=== PATIENT | male | born 1995 ===

== ENCOUNTER 2019-04-04 22:32 | Emergency (ER) | payer SELFPAY ==
--- NOTE | 2019-04-05 05:36 | XRay Report ---
PROCEDURE: XR FOOT 3+V RT TECHNIQUE: Right foot radiographs, AP, lateral, and oblique views. HISTORY: pain, s/p surgery 3 wks ago for crush injury COMPARISONS: None . FINDINGS: Fixation pins extending through the second and fifth rays appear intact. Mildly angulated fractures e xtends through the second through fourth distal metatarsals. Mildly displaced fifth proximal phalanx extra-articular fracture. Fourth metatarsal base intra-articular comminuted fracture. No acute joint space abnormalities. Mild forefoot soft tissue swelling. Partially imaged distal tibia and fibular fi xation. Soft tissue calcification adjacent to the medial cuneiform. IMPRESSION: Right forefoot soft tissue swelling may be due to postoperative/posttraumatic inflammation or infecti on status post fixation of the second and fifth rays. Hardware appears intact. Correlation with prior postoperative imaging for more sensitive evaluation is requested. This document is electronically signed by Venkat Rosas MD., April 05 2019 05:34:37 AM ET
[2019-04-05 06:26] LABS: Basophils % (Auto) 0.7 % (0.0-1.8); Eosinophils # (Auto) 0.1 K/mm3 (0.0-0.4); Eosinophils % (Auto) 2.2 % (0.0-4.3); Hematocrit 34.4 % (35.5-45.6); Hemoglobin 11.8 gm/dl (11.8-15.2); Lymphocytes # (Auto) 1.7 K/mm3 (1.2-5.4); Lymphocytes % (Auto) 38.7 % (13.4-35.0); Mean Corpuscular HGB Conc 34 % (32-34); Mean Corpuscular Volume 96 fl (84-94); Monocytes # (Auto) 0.4 K/mm3 (0.0-0.8); Monocytes % (Auto) 9.4 % (0.0-7.3); Platelet Count 270 K/mm3 (140-440); Red Blood Count 3.58 M/mm3 (3.65-5.03); Red Cell Distribution Width 15.5 % (13.2-15.2)
[2019-04-05 06:44] LABS: BUN/Creatinine Ratio 17; Blood Urea Nitrogen 12 mg/dL (9-20); Calcium 9.1 mg/dL (8.4-10.2); Hemolysis Index 10
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
[2019-04-05 09:56] VITALS: BP 128/74
== END 2019-04-05 09:56 | disposition home or self-care (01) ==
LOC: ED 22:32
DX: G89.18 Other acute postprocedural pain (principal); M79.672 Pain in left foot
CPT/HCPCS: 36415; 80048; 85025; 99283